=== PATIENT | male | born 1965 | race Caucasian/White ===

== ENCOUNTER 2019-06-15 16:34 | Inpatient (IN) | payer OTHER ==
[~2019-06-15] VITALS: Ht 188 cm; Wt 112.9 kg
[~2019-06-15 16:34] MED LIST: ATENOLOL 100MG100 MG PO; AZITHROMYCIN 2250 MG PO; BIOTIN10 MG PO; EASY TOUCH SUBQ; GLUCOTROL5 MG PO; HUMALOG100 UNIT/1 SUBQ; LANTUS SUBQ; LOTENSIN20 MG PO; METHYLPREDNISOLO4 M1 PO; NORCO 10-325 T1 EACH PO; PERCOCET 10-321 EACH PO; PROCARDIA XL30 MG PO; TRAZODONE HCL100 MG PO; ZANAFLEX4 MG PO
[2019-06-15 16:46] VITALS: BP 170/118
[2019-06-15] MEDS ORDERED: ZANAFLEX4 MG PO (16:51)
[2019-06-15] MEDS ORDERED: HYDROCODON-ACE1 EAC5 PO (16:51)
[2019-06-15 18:08] LABS: ABSOLUTE BASOPHILS 0.1 thou/uL (0.0-0.2); ABSOLUTE EOSINOPHILS 0.2 thou/uL (0.0-0.7); ABSOLUTE LYMPHOCYTES 0.8 thou/uL (0.8-5.3); ABSOLUTE MONOCYTES 0.9 thou/uL (0.0-1.2); ABSOLUTE NEUTROPHILS 11.1 thou/uL (1.6-8.1); BASOPHILS 0.6 %; EOSINOPHILS 1.3 %; HEMATOCRIT 42.2 % (42.0-52.0); HEMOGLOBIN 14.6 gm/dL (14.0-18.0); LYMPHOCYTES 6.1 %; MCH 30.3 pg (26.0-34.0); MCHC 34.7 g/dL (28.0-37.0); MCV 87.2 fL (80.0-100.0); MONOCYTES 7.1 %; MPV 7.7 fl. (7.2-11.1); NUCLEATED RBCS 0 /100WBC; PLATELET COUNT* 207 thou/uL (150-400); POLYS 84.9 %; RBC 4.84 mil/uL (4.50-6.00); RDW-CV 12.4 % (10.5-14.5); WBC 13.1 thou/uL (4.0-11.0)
[2019-06-15 18:21] LABS: INR 1.1; PROTIME 10.8 Seconds (9.20-11.50)
[2019-06-15 18:30] LABS: CALCIUM 9.6 mg/dL (8.5-10.1); CREATININE 0.8 mg/dL (0.6-1.3); POTASSIUM 4.3 mmol/L (3.5-5.1)
[2019-06-15 18:39] LABS: TOTAL BILIRUBIN 0.5 mg/dL (<0.1-1.0); TOTAL PROTEIN 8.1 g/dL (6.4-8.2)
[2019-06-15 20:05] VITALS: BP 178/93
[2019-06-15 20:16] VITALS: BP 180/87
[2019-06-16 04:18] VITALS: BP 154/73
[2019-06-16 07:40] VITALS: BP 147/79
[2019-06-16 09:39] LABS: URINE BILIRUBIN NEGATIVE (Negative); URINE BLOOD NEGATIVE (Negative); URINE CLARITY CLEAR; URINE COLOR YELLOW; URINE GLUCOSE-RANDOM 2+ (Negative); URINE KETONES 3+ (Negative); URINE LEUKOCYTES-REFLEX NEGATIVE (Negative); URINE NITRITE-REFLEX NEGATIVE (Negative); URINE PROTEIN NEGATIVE (Negative); URINE SPECIFIC GRAVITY >= 1.030 (1.005-1.030); URINE UROBILINOGEN 0.2 E.U./dl (0.2-1.0)
[2019-06-16 09:43] LABS: ACETEST (KETONE CONFIRMATORY) Large (Negative)
[2019-06-16 11:46] VITALS: BP 147/79
[2019-06-16 12:36] VITALS: BP 161/85
[2019-06-16 15:20] VITALS: BP 146/74
--- NOTE | 2019-06-16 16:49 | EKG ---
[place] [address] ELECTROCARDIOGRAM REPORT Name: KIERSTEN LEIVA Room: [address] ADM IN M.R.#: [id number] Admission: 06/15/19 Attend Phys: Trina Lamar MD Discharge: Date of : 63 Report #: [id number] THIS REPORT FOR: //name// [facility] ED Test Date: 2019-06-15 Test Time: 18:00:39 Pat Name: KIERSTEN LEIVA Department: Room: [facility] Gender: M Transport Analyst: TDOWNS : 1965 Requested By: Amilcar Sharpe Order Number: [id number] MD: Ryder Corrales Measurements Intervals [place] Rate: 76 P: 28 ME: 148 QRS: -55 QRSD: 110 T: 5 QT: 387 QTc: 436 Interpretive Statements Sinus rhythm Left anterior fascicular block Consider anterior infarct Baseline wander in lead(s) V1 Compared to ECG 03/07/2017 20:24:42 Sinus tachycardia no longer present Incomplete right bundle-branch block no longer present Myocardial infarct finding still present Electronically Signed On 06-16-2019 16:49:38 AUTO BODY ESTIMATOR by Ryder Corrales [email or web address] <ELECTRONICALLY SIGNED> By: Ryder Corrales MD, FACC 06/16/19 1649 1800 1800 Ryder Corrales MD, FACC /EPI
[2019-06-16 21:00] VITALS: BP 167/87
[2019-06-17 02:07] LABS: GLYCOHEMOGLOBIN (HGB A1C) 12.3 % (4.8-5.6)
[2019-06-17 09:00] VITALS: BP 156/83
--- NOTE | 2019-06-17 12:05 | CON ---
[address] [address] CONSULTATION Name: KIERSTEN LEIVA Room: [address] IN .R.#: [id number] Admission: 06/15/19 Attend Phys: Trina Lamar MD Discharge: Date of : 63 Report #: [id number] THIS REPORT FOR: //name// CC: [facility] physician/PCP Trina Lamar DATE OF SERVICE: 06/16/2019 INFECTIOUS DISEASE CONSULTATION ATTENDING PHYSICIAN: Reginald Spivey MD REASON FOR EVALUATION: Suspected chronic osteomyelitis involving the right great toe. HISTORY OF PRESENT ILLNESS: Chart reviewed and the patient examined. This is a 53-year-old gentleman with known diabetes mellitus. He denies peripheral neuropathy and has longstanding ulcer over the plantar aspect overlying the first metatarsophalangeal joint in excess of a year. He noted over the course of last few days prior to admission, increasing pain and swelling associated with that site, extended proximally. Subsequently, developed some fevers, systemic illness, initially evaluated and was found to have a normal lactic acid. Plain film of the foot showed soft tissue defect, significant soft tissue swelling in the first MTP joint, cortical irregularity involving the medial aspect of the distal first metatarsal, question of possible osteomyelitis. Blood sugar was elevated at 448. Blood cultures are sterile thus far. Urinalysis showed no protein, large amount of ketones. He is scheduled to undergo operative procedure including a first toe amputation today. Empirically started on antimicrobial therapy with ceftriaxone and vancomycin. ALLERGIES: LISTED TO MEPERIDINE. CURRENT MEDICATIONS: Include insulin lispro, ceftriaxone, vancomycin, tizanidine, enoxaparin, p.r.n. analgesics and antiemetics. PAST MEDICAL HISTORY: Diabetes mellitus, chronic distal lower extremity ulcer. SOCIAL HISTORY: Nonsmoker, history of past excess ethanol, none recently. No illicit drug use. FAMILY HISTORY: Noncontributory. REVIEW OF SYSTEMS: Denies significant pulmonary or gastrointestinal-related complaints. PHYSICAL EXAMINATION: [place] [address] CONSULTATION Name: KIERSTEN LEIVA Room: [address]#: [id number] Admission: 06/15/19 Attend Phys: Trina Lamar MD Discharge: Date of : 63 Report #: [id number] GENERAL: Alert, cooperative, appropriate, moderate distress, appears to be well nourished. VITAL SIGNS: Temperature 97.9, pulse 67, respirations 17, blood pressure 161/85. SKIN: Warm, dry, no rashes. HEENT: Normocephalic. Extraocular muscles intact. NECK: Supple. LUNGS: Clear to auscultation bilaterally. HEART: Regular. I do not appreciate a murmur. ABDOMEN: Soft, nontender, nondistended. He has got a dressing over the right foot, moderate degree of inflammation noted evidently proximally with swelling. GENITOURINARY AND RECTAL: Deferred. LABORATORY DATA: Urinalysis 2+ glucose, 3+ ketones, negative for protein. Micro, no significant inflammation. Blood cultures sterile thus far. Troponin less than 0.06. Electrolytes: Sodium 132, potassium 4.3, chloride 97, bicarbonate is 20, anion gap of 15, BUN and creatinine 25 and 0.8, glucose of 448. LFTs unremarkable. Albumin of 3.0, total protein of 8.1, estimated GFR 101. Chest x-ray, no acute process. Lactic acid 1.1. CBC: White count of 13.1, H and H 14.6 and 42.2, platelets of 207. ASSESSMENT AND PLAN: Deep infection involving the right foot, ulcer over the plantar aspect of the first metatarsophalangeal joint, certainly is high suspicious for osteomyelitis. We will continue empiric antimicrobial therapy. We will await findings, impressions at surgery, culture results as well as path. Need postoperative wound care. We will monitor expectantly now that he is at significant risk for nosocomial-related infectious complications, but we will add incentive spirometer as well, he will be limited in his activity. <ELECTRONICALLY SIGNED> By: Checo Graham MD 06/17/19 1205 1255 2320Joelvin Graham MD /nt
[2019-06-17 16:00] VITALS: BP 162/86
--- NOTE | 2019-06-17 18:20 | OP ---
[address] [address] OPERATIVE REPORT Name: KIERSTEN LEIVA Room: [address] IN .R.#: [id number] Admission: 06/15/19 Attend Phys: Trina Lamar MD Discharge: Date of : 63 Report #: [id number] THIS REPORT FOR: //name// CC: [facility] physician/PCP Trina Lamar DATE OF SERVICE: 06/16/2019 PREOPERATIVE DIAGNOSIS: Osteomyelitis with abscess, right first metatarsophalangeal joint. POSTOPERATIVE DIAGNOSIS: Osteomyelitis with abscess, right first metatarsophalangeal joint. PROCEDURE: Partial first ray amputation, right foot and incision and drainage abscess. ANESTHESIA: General anesthetic. HEMOSTASIS: Right thigh tourniquet set at 300 mmHg pressure. ESTIMATED BLOOD LOSS: Less than 17 mL. SPECIMEN THAT WAS REMOVED: Partial first ray, right foot. DEEP CULTURES: Aerobic and anaerobic. INJECTABLES: None. MATERIALS: None. DESCRIPTION OF PROCEDURE: The patient was brought to the OR and placed in a supine position, at which time, anesthesia was administered. A well-padded pneumatic ankle tourniquet was placed on the patient's right thigh. A timeout was called and the patient identified along with any allergies, the extremity along with the operation to be performed. All parties in the OR were in agreement. Next, the right foot and ankle was prepped with Betadine. The patient was then draped in sterile manner. Attention was then directed to the right lower extremity, which was elevated for a period of 3 minutes and the thigh tourniquet was elevated to 300 mmHg pressure. The right hallux was circumscribed with a #15 blade down to the MPJ of the right foot. Purulent exudate was immediately noted coming through the incision lines. The incision was carried all the way down to the joint level and the hallux was disarticulated at the first metatarsophalangeal joint. It was noted that the sesamoid apparatus was infected and both the sesamoids [place] [address] OPERATIVE REPORT Name: KIERSTEN LEIVA Room: [address] IN M.R.#: [id number] Admission: 06/15/19 Attend Phys: Trina Lamar MD Discharge: Date of : 63 Report #: [id number] Deep tissue was noted to have abnormal devitalized tissue along with several pockets, particularly one plantar to the first metatarsal of pus. All of these pockets were opened and drained. All abnormal tissue was removed from the surgical site. The first metatarsal was resected down to the base. The remaining metatarsal was remodeled. The long flexor tendon was intact and did not appear to be infected. This will be left in the area for use during secondary closure. Again, the surgical sites were inspected. Deep cultures were taken for aerobic and anaerobic culture. The first ray will be sent to pathology for gross micro and culture. Surgical site was then flushed with sterile saline with antibiotic solution. Again, the area was inspected to ensure removal of all devitalized tissue and make sure no purulent pockets were left. The surgical site was improved upon visual inspection after flushing. Next, the surgical site was then dressed with 2 bottles of half inch iodoform gauze into the surgical site along with ABD, soft roll and an Jordan wrap under compression. The thigh tourniquet was deflated. Vascular status returned to the right foot. Prior to leaving the OR, the surgical site was reinforced with ABDs. The patient left the OR with vital signs stable and vascular status intact to the right foot. After recovery, he will be transferred back to the floor. <ELECTRONICALLY SIGNED> By: Joann Melvin DPM 06/17/19 1820 1442 1906Ann REENA Melvin /nt
[2019-06-18 03:50] LABS: HEMATOCRIT 39.7 % (42.0-52.0); HEMOGLOBIN 13.4 gm/dL (14.0-18.0); MCH 29.4 pg (26.0-34.0); MCHC 33.9 g/dL (28.0-37.0); MCV 86.7 fL (80.0-100.0); NUCLEATED RBCS 0 /100WBC; PLATELET COUNT* 224 thou/uL (150-400); RBC 4.58 mil/uL (4.50-6.00); RDW-CV 12.1 % (10.5-14.5); WBC 10.2 thou/uL (4.0-11.0)
[2019-06-18 04:16] LABS: ALBUMIN 2.4 g/dL (3.4-5.0); CALCIUM 8.5 mg/dL (8.5-10.1); CREATININE 0.7 mg/dL (0.6-1.3); POTASSIUM 3.6 mmol/L (3.5-5.1); TOTAL BILIRUBIN 0.3 mg/dL (<0.1-1.0); TOTAL PROTEIN 6.8 g/dL (6.4-8.2)
[2019-06-18 05:43] LABS: ABSOLUTE EOSINOPHILS 0.2 thou/uL (0.0-0.7); ABSOLUTE LYMPHOCYTES 1.7 thou/uL (0.8-5.3); ABSOLUTE MONOCYTES 0.6 thou/uL (0.0-1.2); ABSOLUTE NEUTROPHILS 7.7 thou/uL (1.6-8.1); ANISOCYTOSIS 1+; PLATELET ESTIMATE ADEQUATE; POIKILOCYTOSIS 1+
[2019-06-18 08:00] VITALS: BP 157/87
--- NOTE | 2019-06-18 18:06 | PATH ---
[address] [address] PATHOLOGY RPT PROCEDURE Name: DARREN LEIVA Room: [address] IN .R.#: [id number] Admission: 06/15/19 Date of : 63 Discharge: Report #: [id number] Path Case #: [id number] [facility] Accession Number: [id number] . 01 Material submitted: . toe - RIGHT FIRST RAY. Modifiers: right . 01 Clinical history: . Osteomyelitis right first metatarsal with abscess . 02 Diagnosis: Right first ray: - Benign toe with several nonspecific ulcerations and extensive acute inflammation of underlying soft tissues and osteomyelitis of phalangeal bones. Separate osteocartilaginous segment typical of metatarsal with osteomyelitis, with transection margin free of osteomyelitis. (CHESTER:alex; 06/18/2019) MBR 06/18/2019 1658 Local . 02 Electronically signed: . Lucian Velasco MD, Pathologist NPI- [id number] . 01 Gross description: . The specimen is received in formalin, labeled "Darern Leiva, right first ray". Received is an amputated digit measuring 10.5 x 6.5 x 4.4 cm in greatest mentions. The bone margin is smooth and concave in appearance, consistent with disarticulation. The soft tissue margin extends 3.6 cm proximal to the bone margin. The bone and soft tissue margins are inked black. On the medial aspect of the specimen, there is a poorly circumscribed, irregular in contour, necrotic-appearing and [id number] lesion 6.0 x 4.3 cm, which is 0.3 cm from the closest skin margin. Adjacent to this lesion on the plantar aspect of the specimen, there is a secondary lesion which is well-circumscribed, depressed and campos-brown measuring 0.7 x 0.5 cm, which is 0.4 cm from the closest margin, and 2.4 cm from the underlying bone. The nail is present displaying a pale rader and slightly thickened appearance. The remainder of the epidermal surface is pale rader and wrinkled in appearance. The specimen is submitted representatively as follows: . A1 auto claim representative section of primary lesion to show relationship with closest skin margin A2 auto claim representative section of secondary lesion to show relationship with closest skin margin A3 auto claim representative longitudinal cross-section through bone margin of amputated digit, following decalcification A4 auto claim representative section of primary lesion to include underlying bone from amputated digit, [place] [address] PATHOLOGY RPT PROCEDURE Name: DRAREN LEIVA Room: [address] IN [facility].#: [id number] Admission: 06/15/19 Date of : 63 Discharge: Report #: [id number] Path Case #: [id number] . Also received within the specimen container is a segment of pale rader fibrous soft tissue with a slight amount of attached bone measuring 4.7 x 2.3 x 1.3 cm in greatest dimensions. One bone margin is identified displaying a concave appearance, consistent with disarticulation, and is inked blue. A auto claim representative section is submitted in cassette A5, following decalcification. . There is an additional segment of bone, consistent with metatarsal displaying one blunt, transected margin, and one smooth, convex disarticulated margin measuring 5.1 x 2.5 x 2.4 cm in greatest dimensions. The transected margin is inked black. A full thickness cross-section is submitted from transected to disarticulated aspects in cassettes A6 and A7, following decalcification. (CAA; 06/17/2019) QAC/QAC 06/17/2019 1439 Local . 02 Pathologist provided ICD-10: M86.8X7, L97.519 . 02 CPT . 069255, [id number] Specimen Comment: A courtesy copy of this report has been sent to [phone] Specimen Comment: [phone] Specimen Comment: Report sent to and Performed at: 01 [facility] [address], [place] [id number] MD Francesco Walker MD Phone: [phone] Performed at: [address] [id number] MD Lucian Velasco MD Phone: [phone]
[2019-06-18 21:15] VITALS: BP 152/88
[2019-06-19 04:10] LABS: ABSOLUTE BASOPHILS 0.1 thou/uL (0.0-0.2); ABSOLUTE EOSINOPHILS 0.4 thou/uL (0.0-0.7); ABSOLUTE LYMPHOCYTES 2.2 thou/uL (0.8-5.3); ABSOLUTE MONOCYTES 0.9 thou/uL (0.0-1.2); ABSOLUTE NEUTROPHILS 6.2 thou/uL (1.6-8.1); HEMATOCRIT 38.5 % (42.0-52.0); HEMOGLOBIN 13.2 gm/dL (14.0-18.0); LYMPHOCYTES 22.3 %; MCH 29.6 pg (26.0-34.0); MCHC 34.3 g/dL (28.0-37.0); MCV 86.3 fL (80.0-100.0); MONOCYTES 9.1 %; NUCLEATED RBCS 0 /100WBC; PLATELET COUNT* 234 thou/uL (150-400); POLYS 63.6 %; RBC 4.45 mil/uL (4.50-6.00); RDW-CV 12.4 % (10.5-14.5); WBC 9.8 thou/uL (4.0-11.0)
[2019-06-19 04:23] LABS: CALCIUM 8.4 mg/dL (8.5-10.1); CREATININE 0.7 mg/dL (0.6-1.3); POTASSIUM 3.5 mmol/L (3.5-5.1)
[2019-06-19 09:12] VITALS: BP 145/82
[2019-06-19 16:21] VITALS: BP 148/91
[2019-06-19 20:00] VITALS: BP 135/76
[2019-06-20 06:01] LABS: ABSOLUTE BASOPHILS 0.1 thou/uL (0.0-0.2); ABSOLUTE EOSINOPHILS 0.3 thou/uL (0.0-0.7); ABSOLUTE LYMPHOCYTES 1.8 thou/uL (0.8-5.3); ABSOLUTE MONOCYTES 0.7 thou/uL (0.0-1.2); BASOPHILS 1.1 %; EOSINOPHILS 3.3 %; HEMATOCRIT 38.6 % (42.0-52.0); HEMOGLOBIN 13.1 gm/dL (14.0-18.0); LYMPHOCYTES 20.3 %; MCH 29.4 pg (26.0-34.0); MCHC 34.1 g/dL (28.0-37.0); MCV 86.4 fL (80.0-100.0); MPV 7.3 fl. (7.2-11.1); NUCLEATED RBCS 0 /100WBC; PLATELET COUNT* 223 thou/uL (150-400); POLYS 67.3 %; RBC 4.47 mil/uL (4.50-6.00); RDW-CV 12.5 % (10.5-14.5)
[2019-06-20 06:07] LABS: CALCIUM 8.2 mg/dL (8.5-10.1); CREATININE 0.6 mg/dL (0.6-1.3); POTASSIUM 3.9 mmol/L (3.5-5.1)
[2019-06-20 07:55] VITALS: BP 170/94
[2019-06-20 16:05] VITALS: BP 144/75
[2019-06-20 16:23] VITALS: BP 155/92
[2019-06-20 21:00] VITALS: BP 145/75
[2019-06-21 04:32] LABS: ABSOLUTE BASOPHILS 0.1 thou/uL (0.0-0.2); ABSOLUTE EOSINOPHILS 0.4 thou/uL (0.0-0.7); ABSOLUTE LYMPHOCYTES 2.9 thou/uL (0.8-5.3); ABSOLUTE MONOCYTES 0.8 thou/uL (0.0-1.2); ABSOLUTE NEUTROPHILS 5.1 thou/uL (1.6-8.1); BASOPHILS 1.3 %; EOSINOPHILS 4.2 %; HEMATOCRIT 38.3 % (42.0-52.0); HEMOGLOBIN 13.2 gm/dL (14.0-18.0); LYMPHOCYTES 31.1 %; MCH 29.6 pg (26.0-34.0); MCHC 34.4 g/dL (28.0-37.0); MONOCYTES 8.3 %; MPV 7.3 fl. (7.2-11.1); NUCLEATED RBCS 0 /100WBC; PLATELET COUNT* 242 thou/uL (150-400); POLYS 55.1 %; RBC 4.46 mil/uL (4.50-6.00); RDW-CV 12.1 % (10.5-14.5); WBC 9.2 thou/uL (4.0-11.0)
[2019-06-21 04:53] LABS: CALCIUM 8.6 mg/dL (8.5-10.1); CREATININE 0.6 mg/dL (0.6-1.3); POTASSIUM 3.8 mmol/L (3.5-5.1)
[2019-06-21 16:00] VITALS: BP 152/86
[2019-06-21 21:00] VITALS: BP 150/79
[2019-06-22 08:10] VITALS: BP 142/86
[2019-06-22 16:00] VITALS: BP 140/82
[2019-06-23 02:37] VITALS: BP 125/79
[2019-06-23 04:57] LABS: ABSOLUTE BASOPHILS 0.1 thou/uL (0.0-0.2); ABSOLUTE EOSINOPHILS 0.3 thou/uL (0.0-0.7); ABSOLUTE LYMPHOCYTES 2.7 thou/uL (0.8-5.3); ABSOLUTE MONOCYTES 0.8 thou/uL (0.0-1.2); ABSOLUTE NEUTROPHILS 6.5 thou/uL (1.6-8.1); BASOPHILS 1.1 %; EOSINOPHILS 2.8 %; HEMATOCRIT 39.2 % (42.0-52.0); HEMOGLOBIN 13.6 gm/dL (14.0-18.0); MCHC 34.7 g/dL (28.0-37.0); MCV 86.5 fL (80.0-100.0); MPV 7.4 fl. (7.2-11.1); NUCLEATED RBCS 0 /100WBC; PLATELET COUNT* 250 thou/uL (150-400); POLYS 62.1 %; RBC 4.53 mil/uL (4.50-6.00); RDW-CV 12.3 % (10.5-14.5); WBC 10.5 thou/uL (4.0-11.0)
[2019-06-23 05:04] LABS: CALCIUM 8.9 mg/dL (8.5-10.1); CREATININE 0.6 mg/dL (0.6-1.3); POTASSIUM 3.6 mmol/L (3.5-5.1)
[2019-06-23 08:00] VITALS: BP 162/86
[2019-06-23 11:13] VITALS: BP 162/86
[2019-06-23 16:00] VITALS: BP 133/78
[2019-06-23 21:38] VITALS: BP 141/87
[2019-06-24 05:10] LABS: CALCIUM 9.3 mg/dL (8.5-10.1); CREATININE 0.7 mg/dL (0.6-1.3); MAGNESIUM 1.9 mg/dL (1.8-2.4); POTASSIUM 3.8 mmol/L (3.5-5.1)
[2019-06-24 08:00] VITALS: BP 147/81
[2019-06-24] MEDS ORDERED: ATORVASTATIN CA20 MG PO (12:51)
[2019-06-24] MEDS ORDERED: GLUCOTROL5 MG PO (12:51)
[2019-06-24] MEDS ORDERED: HUMULIN R100 UNIT/1 SUBQ (12:52)
[2019-06-24] MEDS ORDERED: HUMULIN N100 UNIT/1 SUBQ (12:52)
[2019-06-24] MEDS ORDERED: GLUCOPHAGE500 MG PO (12:53)
[2019-06-24] MEDS ORDERED: CEFTRIAXONE2 G1 IVPB (13:18)
[2019-06-24 14:58] VITALS: BP 162/86
[2019-06-24 15:59] VITALS: BP 162/86
== END 2019-06-24 16:43 | disposition home health service (06) | DRG 853 ==
LOC: M.ERS 16:34 → M.TBA-ER 18:23 → M.3W 18:23
PROVIDERS: Family Medicine; Internal Medicine; Nurse Practitioner Family; ADMIT Internal Medicine
PROC: 0Y6M0Z9 Detachment at Right Foot, Partial 1st Ray, Open Approach (ICD-10-PCS; principal; 2019-06-16)
PROC: 05HY33Z Insertion of Infusion Device into Upper Vein, Percutaneous Approach (ICD-10-PCS; 2019-06-19)
DX: A41.9 Sepsis, unspecified organism (principal); E11.10 Type 2 diabetes mellitus with ketoacidosis without coma; L03.115 Cellulitis of right lower limb; M86.8X8 Other osteomyelitis, other site; L97.511 Non-pressure chronic ulcer of other part of right foot limited to breakdown of skin; E11.69 Type 2 diabetes mellitus with other specified complication; E11.65 Type 2 diabetes mellitus with hyperglycemia; E11.621 Type 2 diabetes mellitus with foot ulcer; G89.29 Other chronic pain; E11.40 Type 2 diabetes mellitus with diabetic neuropathy, unspecified; F11.90 Opioid use, unspecified, uncomplicated; Z88.8 Allergy status to other drugs, medicaments and biological substances; Z91.19 Patient's noncompliance with other medical treatment and regimen; Z79.899 Other long term (current) drug therapy

== ENCOUNTER 2020-08-22 13:35 | Inpatient (IN) | payer OTHER ==
[~2020-08-22] VITALS: Ht 188 cm; Wt 97.1 kg
[2020-08-22] VITALS (10 sets, daily range): BP systolic 158–202; BP diastolic 73–138
[~2020-08-22 13:35] MED LIST changes: +ATORVASTATIN CA20 MG PO; +CEFTRIAXONE2 G1 IVPB; +GLUCOPHAGE500 MG PO; +HUMULIN N100 UNIT/1 SUBQ; +HUMULIN R100 UNIT/1 SUBQ; +HYDROCODON-ACE1 EAC5 PO
[2020-08-22 14:07] LABS: HEMATOCRIT 55.7 % (42.0-52.0); HEMOGLOBIN 17.8 gm/dL (14.0-18.0); MCH 29.8 pg (26.0-34.0); MCV 93.1 fL (80.0-100.0); MPV 8.7 fl. (7.2-11.1); NUCLEATED RBCS 0 /100WBC; PLATELET COUNT* 272 thou/uL (150-400); RBC 5.98 mil/uL (4.50-6.00); RDW-CV 13.3 % (10.5-14.5); WBC 24.6 thou/uL (4.0-11.0)
[2020-08-22 14:22] LABS: ALBUMIN 4.8 g/dL (3.4-5.0); CALCIUM 8.9 mg/dL (8.5-10.1); CREATININE 1.8 mg/dL (0.6-1.3); POTASSIUM 4.8 mmol/L (3.5-5.1); TOTAL BILIRUBIN 0.7 mg/dL (<0.1-1.0); TOTAL PROTEIN 8.7 g/dL (6.4-8.2)
[2020-08-22 14:24] LABS: BE -22.5 mmol/L (-2 to +3)
[2020-08-22 15:02] LABS: URINE BLOOD 1+ (Negative); URINE CLARITY CLEAR; URINE COLOR YELLOW; URINE GLUCOSE-RANDOM 3+ (Negative); URINE LEUKOCYTES-REFLEX NEGATIVE (Negative); URINE NITRITE-REFLEX NEGATIVE (Negative); URINE PROTEIN 1+ (Negative); URINE SPECIFIC GRAVITY 1.025 (1.005-1.030); URINE UROBILINOGEN 0.2 E.U./dl (0.2-1.0)
[2020-08-22 15:08] LABS: ABSOLUTE LYMPHOCYTES 1.7 thou/uL (0.8-5.3); ABSOLUTE MONOCYTES 0.7 thou/uL (0.0-1.2); ABSOLUTE NEUTROPHILS 22.1 thou/uL (1.6-8.1)
[2020-08-22 15:09] LABS: PLATELET ESTIMATE ADEQUATE
[2020-08-22 15:10] LABS: ICTOTEST (BILI CONFIRMATORY) Negative (Negative); URINE BILIRUBIN 1+ (Negative); URINE KETONES 3+ (Negative)
[2020-08-22 15:11] LABS: BACTERIA-REFLEX None Seen /HPF (None Seen); HYALINE CASTS 0-3 Few /LPF (None Seen); MUCUS None Seen strn/LPF (None Seen); SQUAMOUS NONE SEEN /LPF (0-3)
[2020-08-22 15:12] LABS: CRYSTALS None Seen /LPF (None Seen); URINE RBC 0-2 Rare /HPF (0-2); URINE WBC-REFLEX None Seen /HPF (0-5)
--- NOTE | 2020-08-22 15:51 | EKG ---
[place] [address] ELECTROCARDIOGRAM REPORT Name: KIERSTEN LEIVA Room: [place] [address] ADM IN .R.#: [id number] Admission: 08/22/20 Attend Phys: Natalie Fuchs MD Discharge: Date of : 63 Date of Service: 08/22/20 1344 Report #: [id number] THIS REPORT FOR: //name// [facility] ED Test Date: 2020-08-22 Test Time: 13:44:06 Pat Name: KIERSTEN LEIVA Department: Room: [facility] Gender: M Attorney Lawyer: LATONIA : 1965 Requested By: Amor Flower Order Number: [id number] MD: Ryder Corrales Measurements Intervals [place] Rate: 132 P: 38 [place]: 137 QRS: -85 QRSD: 107 T: 37 QT: 298 QTc: 442 Interpretive Statements Sinus tachycardia 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
[2020-08-22 18:59] LABS: ALBUMIN 4.1 g/dL (3.4-5.0); CALCIUM 8.1 mg/dL (8.5-10.1); CREATININE 1.8 mg/dL (0.6-1.3); MAGNESIUM 2.8 mg/dL (1.8-2.4); PHOSPHORUS* 4.6 mg/dL (2.5-4.9); POTASSIUM 3.7 mmol/L (3.5-5.1)
[2020-08-22 22:24] LABS: ALBUMIN 3.9 g/dL (3.4-5.0); CREATININE 1.6 mg/dL (0.6-1.3); MAGNESIUM 2.3 mg/dL (1.8-2.4); PHOSPHORUS* 0.9 mg/dL (2.5-4.9); POTASSIUM 3.3 mmol/L (3.5-5.1)
[2020-08-23] VITALS (21 sets, daily range): BP systolic 150–210; BP diastolic 83–102
[2020-08-23 02:56] LABS: ALBUMIN 3.8 g/dL (3.4-5.0); CALCIUM 7.9 mg/dL (8.5-10.1); CREATININE 1.5 mg/dL (0.6-1.3); MAGNESIUM 2.4 mg/dL (1.8-2.4); PHOSPHORUS* 1.2 mg/dL (2.5-4.9); POTASSIUM 3.7 mmol/L (3.5-5.1)
[2020-08-23 05:17] LABS: URINE BLOOD 1+ (Negative); URINE CLARITY CLEAR; URINE COLOR YELLOW; URINE GLUCOSE-RANDOM 1+ (Negative); URINE LEUKOCYTES NEGATIVE (Negative); URINE NITRITE NEGATIVE (Negative); URINE PROTEIN 2+ (Negative); URINE SPECIFIC GRAVITY 1.025 (1.005-1.030); URINE UROBILINOGEN 0.2 E.U./dl (0.2-1.0)
[2020-08-23 05:21] LABS: ICTOTEST (BILI CONFIRMATORY) Negative (Negative); URINE BILIRUBIN 2+ (Negative); URINE KETONES 3+ (Negative)
[2020-08-23 05:32] LABS: SQUAMOUS 0-3 Few /LPF (0-3); URINE RBC 3-10 Few /HPF (0-2); URINE WBC 0-5 Rare /HPF (0-5)
[2020-08-23 05:33] LABS: BACTERIA 1-9 Few /HPF (None Seen); CRYSTALS None Seen /LPF (None Seen); FINE GRANULAR CASTS 0-3 Few /LPF (None Seen); HYALINE CASTS 0-3 Few /LPF (None Seen); MUCUS 0-3 Light strn/LPF (None Seen)
[2020-08-23 06:32] LABS: ABSOLUTE LYMPHOCYTES 0.4 thou/uL (0.8-5.3); ABSOLUTE MONOCYTES 1.9 thou/uL (0.0-1.2); ABSOLUTE NEUTROPHILS 9.8 thou/uL (1.6-8.1); BASOPHILS 0.1 %; HEMATOCRIT 53.5 % (42.0-52.0); HEMOGLOBIN 17.7 gm/dL (14.0-18.0); LYMPHOCYTES 3.6 %; MCH 29.9 pg (26.0-34.0); MCV 90.4 fL (80.0-100.0); MONOCYTES 15.4 %; MPV 8.5 fl. (7.2-11.1); NUCLEATED RBCS 0 /100WBC; POLYS 80.9 %; RBC 5.91 mil/uL (4.50-6.00); RDW-CV 12.8 % (10.5-14.5); WBC 12.2 thou/uL (4.0-11.0)
[2020-08-23 06:38] LABS: PLATELET COUNT* 138 thou/uL (150-400)
[2020-08-23 06:52] LABS: ALBUMIN 4.1 g/dL (3.4-5.0); CALCIUM 9.3 mg/dL (8.5-10.1); CREATININE 1.4 mg/dL (0.6-1.3); POTASSIUM 3.7 mmol/L (3.5-5.1); TOTAL BILIRUBIN 0.9 mg/dL (<0.1-1.0); TOTAL PROTEIN 7.5 g/dL (6.4-8.2)
[2020-08-23 10:24] LABS: AMP/METHAMP Negative (Negative); BARBITURATES Negative (Negative); BENZODIAZEPINES Negative (Negative); COCAINE Negative (Negative); METHADONE Negative (Negative); OPIATES POSITIVE (Negative); PCP Negative (Negative); THC POSITIVE (Negative)
[2020-08-23 10:26] LABS: ALBUMIN 3.9 g/dL (3.4-5.0); CREATININE 1.4 mg/dL (0.6-1.3); MAGNESIUM 2.4 mg/dL (1.8-2.4); PHOSPHORUS* 2.4 mg/dL (2.5-4.9); POTASSIUM 4.4 mmol/L (3.5-5.1)
[2020-08-23 15:41] LABS: ALBUMIN 3.8 g/dL (3.4-5.0); CALCIUM 8.2 mg/dL (8.5-10.1); CREATININE 1.3 mg/dL (0.6-1.3); MAGNESIUM 2.7 mg/dL (1.8-2.4); PHOSPHORUS* 1.2 mg/dL (2.5-4.9); POTASSIUM 4.1 mmol/L (3.5-5.1)
[2020-08-23 19:07] LABS: ALBUMIN 3.7 g/dL (3.4-5.0); CALCIUM 8.2 mg/dL (8.5-10.1); CREATININE 1.3 mg/dL (0.6-1.3); MAGNESIUM 2.5 mg/dL (1.8-2.4); PHOSPHORUS* 0.9 mg/dL (2.5-4.9); POTASSIUM 3.3 mmol/L (3.5-5.1)
[2020-08-23 22:22] LABS: CALCIUM 8.2 mg/dL (8.5-10.1); CREATININE 1.2 mg/dL (0.6-1.3); MAGNESIUM 2.4 mg/dL (1.8-2.4); POTASSIUM 3.5 mmol/L (3.5-5.1)
[2020-08-24] VITALS: BP 151/92
[2020-08-24 02:42] LABS: CALCIUM 8.4 mg/dL (8.5-10.1); CREATININE 1.1 mg/dL (0.6-1.3); MAGNESIUM 2.4 mg/dL (1.8-2.4); POTASSIUM 3.4 mmol/L (3.5-5.1)
[2020-08-24 06:06] LABS: GLYCOHEMOGLOBIN (HGB A1C) 12.3 % (4.8-5.6)
[2020-08-24 06:16] LABS: ALBUMIN 3.4 g/dL (3.4-5.0); MAGNESIUM 2.2 mg/dL (1.8-2.4); PHOSPHORUS* 0.9 mg/dL (2.5-4.9); POTASSIUM 3.6 mmol/L (3.5-5.1)
[2020-08-24 07:00] VITALS: BP 152/97
[2020-08-24 11:42] VITALS: BP 156/91
[2020-08-25 00:04] VITALS: BP 152/92
[2020-08-25 04:39] VITALS: BP 154/101
[2020-08-25 08:00] VITALS: BP 165/92
[2020-08-25] MEDS ORDERED: NOVOLIN N100 UNIT/3 SUBQ (09:47)
[2020-08-25] MEDS ORDERED: HUMULINR100 SUBQ (09:47)
[2020-08-25] MEDS ORDERED: INSULIN SYRING1 EA13 SUBQ (09:47)
[2020-08-25 13:30] VITALS: BP 165/92
== END 2020-08-25 14:15 | disposition home or self-care (01) | DRG 637 ==
LOC: M.ERS 13:35 → M.TBA-ER 14:44 → M.ICU 14:44 → M.2W 08-24 11:57
PROVIDERS: Emergency Medicine Emergency Medical Services; Internal Medicine; ADMIT Family Medicine; ATTEND Family Medicine
DX: E11.10 Type 2 diabetes mellitus with ketoacidosis without coma (principal); N17.0 Acute kidney failure with tubular necrosis; R65.10 Systemic inflammatory response syndrome (SIRS) of non-infectious origin without acute organ dysfunction; E87.0 Hyperosmolality and hypernatremia; E78.5 Hyperlipidemia, unspecified; G89.29 Other chronic pain; M54.9 Dorsalgia, unspecified; Z20.822 Contact with and (suspected) exposure to COVID-19; Z88.8 Allergy status to other drugs, medicaments and biological substances; Z91.14 Patient's other noncompliance with medication regimen